=== PATIENT | female | born 1960 | race Caucasian/White ===

== ENCOUNTER 2017-10-22 02:18 | Emergency (ER) | payer OTHER ==
[2017-10-22 02:26] VITALS: BP 138/81; TEMP 97.5; O2SAT 99
--- NOTE | 2017-10-22 02:42 | EDPHY ---
H & P Stated Complaint: fall on ski pole 1 week ago pain to chest and shldr Time Seen by Provider: 10/22/17 02:28 HPI/ROS: HPI The patient presents with left-sided chest and back pain. One week ago she had a fall while skiing, she fell forward and the ski pole that she was holding in her left hand hit her anterior left chest wall. Her pain improved over the following days, however 2 days ago she went on a run and the pain became worse and more diffuse. She is now feeling pain in her left anterior and posterior chest as well as her left axilla. Her pain is worse with deep breaths and changes in position. She is most comfortable sitting up right. She has not had a cough or fever. REVIEW OF SYSTEMS Constitutional: No fever, no chills. Eyes: No discharge. ENT: No sore throat. Cardiovascular: No chest pain, no palpitations. Respiratory: No cough, no shortness of breath. Gastrointestinal: No abdominal pain, no vomiting. Genitourinary: No hematuria. Musculoskeletal: No back pain. Skin: No rashes. Neurological: No headache. PMHx: Healthy Soc Hx: Here with her PHYSICAL General Appearance: Alert, no distress Eyes: Pupils equal and round no pallor or injection ENT, Mouth: Mucous membranes moist Respiratory: There are no retractions, lungs are clear to auscultation Cardiovascular: Regular rate and rhythm Chest wall: There is tenderness throughout the anterior left chest wall with no axillary tenderness and no scapular tenderness Gastrointestinal: Abdomen is soft and non-tender, no masses, bowel sounds normal Neurological: A&O, moves all extremities Skin: Warm and dry, no rashes Musculoskeletal: Neck is supple non tender Extremities: symmetrical, full range of motion Psychiatric: Patient is oriented X 3, there is no agitation Source: Patient Exam Limitations: No limitations - Personal History Current Tetanus/Diphtheria Vaccine: Unsure Current Tetanus Diphtheria and Acellular Pertussis (TDAP): Unsure - Medical/Surgical History Hx Asthma: No Hx Chronic Respiratory Disease: No Hx Diabetes: No Hx Cardiac Disease: No Hx Renal Disease: No Hx Cirrhosis: No Hx Alcoholism: No Hx HIV/AIDS: No Hx Splenectomy or Spleen Trauma: No Other PMH: dnc - Social History Smoking Status: Never smoked Constitutional: Initial Vital Signs Temperature (C) 36.4 C 10/22/17 02:22 Heart Rate 66 10/22/17 02:22 Respiratory Rate 18 10/22/17 02:22 Blood Pressure 138/81 H 10/22/17 02:22 O2 Sat (%) 99 10/22/17 02:22 O2 Delivery Mode Room Air Allergies/Adverse Reactions: No Known Allergies Allergy (Unverified 10/22/17 02:21) Home Medications: Medication Instructions Recorded NK [No Known Home Meds] 10/22/17 Medical Decision Making - Diagnostics EKG Interpretation: EKG: Complete interpretation has been separately recorded in the [facility] archive. Summary impression: Normal sinus rhythm Imaging Results: Chest x-ray with left-sided rib series demonstrates no obvious rib fracture, no pneumothorax, no pleural effusion, interpreted by me, radiology interpretation is pending. Differential Diagnosis: 57-year-old healthy female presents with a left-sided chest wall pain after a fall onto a ski pole 1 week ago. Pain was initially improving, then became worse after a run 2 days ago. She awoke from sleep with pain today. On exam, she is not hypoxic, she is tender in her chest though her lungs are clear. Differential diagnosis includes pulmonary contusion, rib contusion, rib fracture , pneumothorax, costochondritis. In the emergency department, patient declined pain medication. EKG was obtained and was normal without any signs of pericarditis. Chest x-ray with rib views was performed and I could not identify any rib fracture. She does not have a pneumothorax. I suspect she suffered from a chest wall contusion which became worse after exercise because of the irritation of the pleura. I have explained this to her. I have advised her to take ibuprofen and Tylenol around the clock until she is feeling better. She is in agreement with this plan and will be discharged in good condition. Departure - Departure Disposition: Home, Routine, Self-Care Clinical Impression: Chest wall contusion Qualifiers: Encounter type: initial encounter Laterality: left Qualified Code(s): S20.212A - Contusion of left front wall of thorax, initial encounter Condition: Good Instructions: Pleurisy (ED), Chest Wall Pain (ED) Additional Instructions: I suspect you had an injury to your chest wall with some internal bruising that became worse after running and caused inflammation of the pleura (the lining of the lungs). I recommend you take ibuprofen 400-800 mg with acetaminophen 650-1000 mg every 6 hrs as needed for pain. You can try a heat pack or an ice pack to see if that helps as well. Your pain may linger, however you should be getting better in the next few days. I would recommend light activity but nothing to strenuous and no heavy lifting. If you develop a fever or cough or any shortness of breath you should follow up with your regular doctor. In the morning, the radiologist will review your x-rays and if they see anything abnormal we will contact you. Referrals: Kirsten Renee MD [Primary Care Provider] - As per Instructions
--- NOTE | 2017-10-22 02:50 | CPEKG ---
Heart Rate: 60 RR Interval: 1000 P-R Interval: 140 QRSD Interval: 96 QT Interval: 448 QTC Interval: 448 P Clover: 61 QRS Clover: 102 T Wave Clover: 63 EKG Severity - OTHERWISE NORMAL ECG - EKG Impression: SINUS RHYTHM EKG Impression: RIGHT AXIS DEVIATION Electronically Signed By: Yanelis Flores 22-Oct-2017 05:59:37
[2017-10-22 03:42] VITALS: PULSE 65; RESP 16
== END 2017-10-22 03:42 | disposition home or self-care (01) ==
DX: S20.212A Contusion of left front wall of thorax, initial encounter (principal); V00.321A Fall from snow-skis, initial encounter; Y99.8 Other external cause status; Y93.23 Activity, snow (alpine) (downhill) skiing, snowboarding, sledding, tobogganing and snow tubing